=== PATIENT | female | born 1980 | race Caucasian/White ===

== ENCOUNTER 2020-11-10 10:00 | Outpatient (CLI) | payer MEDICAID, SELFPAY ==
[~2020-11-10] VITALS: Ht 162.6 cm; Wt 66.2 kg
[2020-11-10 09:59] LABS: BASOPHILS % (AUTO) 0.4 % (0.0-2.0); EOSINOPHILS # (AUTO) 0.1 K/uL (0.0-0.4); EOSINOPHILS % (AUTO) 1.2 % (0.0-4.0); HEMATOCRIT 38.6 % (36-48); LYMPHOCYTES # (AUTO) 1.1 K/uL (1.0-5.5); LYMPHOCYTES % (AUTO) 14.4 % (20.5-51.5); MEAN CORPUSCULAR HEMOGLOBIN 34 pg (27-31); MEAN CORPUSCULAR HGB CONC 34 % (32-36); MEAN CORPUSCULAR VOLUME 99 fL (79.0-98.0); MONOCYTES # (AUTO) 0.5 K/uL (0.0-1.0); MONOCYTES % (AUTO) 6.4 % (1.7-9.3); NEUTROPHILS # (AUTO) 5.8 K/uL (1.8-7.7); NEUTROPHILS % (AUTO) 77.6 % (40.0-70.0); PLATELET COUNT (AUTO) 220 K/uL (130-430); RED BLOOD CELL COUNT(AUTO) 3.89 MIL/uL (4.2-6.2); RED CELL DISTRIBUTION WIDTH 12.5 % (9.0-15.0); WHITE BLOOD COUNT (AUTO) 7.4 K/uL (4.8-10.8)
[2020-11-10 10:25] LABS: ALBUMIN 3.8 g/dL (3.4-4.8); CALCIUM 8.7 mg/dL (8.4-11.0); CREATININE 0.73 mg/dL (0.55-1.30); POTASSIUM 4.6 mmol/L (3.5-5.1); TOTAL BILIRUBIN 0.6 mg/dL (0.0-1.0)
== END 2020-11-10 11:00 | disposition home or self-care (01) ==
LOC: SLB 10:00 → EDSTATUS 11-12 08:00
PROVIDERS: ATTEND Obstetrics & Gynecology
DX: Z01.812 Encounter for preprocedural laboratory examination (principal); Z20.822 Contact with and (suspected) exposure to COVID-19
CPT/HCPCS: 36415; 80053; 85025; 86886; 86900; 86901

== ENCOUNTER 2021-05-05 09:47 | Day surgery (SDC) | payer MEDICAID, SELFPAY ==
[~2021-05-05] VITALS: Ht 162.6 cm; Wt 66.7 kg
[2021-05-05 10:32] LABS: HCG,QUAL RESULT NEGATIVE (NEGATIVE)
[2021-05-05] MEDS ORDERED: KETOROLAC TROMETHAMINE 30 MG VIAL IVP ONE (11:48)
[2021-05-05] MEDS ORDERED: ONDANSETRON HCL 4 MG/2 ML VIAL IVP ONE (11:48)
[2021-05-05] MEDS ORDERED: PROPOFOL 200MG/ 20ML VIAL (DIPRIVAN) IV ONE (11:48)
[2021-05-05] MEDS ORDERED: DESFLURANE 15 MIN GAS INH ONE (11:48)
[2021-05-05] MEDS ORDERED: NS 1000 ML IV.SOLN IV ONE (11:48)
[2021-05-05] MEDS ORDERED: fentaNYL CITRATE/PF 100 MCG/2 ML AMP IVP ONE (11:48)
[2021-05-05] MEDS ORDERED: LR 1,000 ML IV.SOLN IV ONE (11:48)
[2021-05-05] MEDS ORDERED: DEXAMETHASONE SOD PHOSPHATE 4 MG/ML VIAL IVP ONE (11:48)
[2021-05-05] MEDS ORDERED: METOCLOPRAMIDE HCL 10 MG/2 ML VIAL IVP PRN (12:30)
[2021-05-05 14:20] VITALS: BP_SYST 110
== END 2021-05-05 14:10 | disposition home or self-care (01) ==
LOC: SDS 09:47 → SMU 10:03 → SDS 14:10
PROVIDERS: ATTEND Obstetrics & Gynecology
DX: T83.32XA Displacement of intrauterine contraceptive device, initial encounter (principal); Y82.8 Other medical devices associated with adverse incidents; Z88.0 Allergy status to penicillin
CPT/HCPCS: 36415; 58562; 84703; 86886; 86900; 86901; 87426; 88300; 88305; J1100; J1885; J2405; J2704; J3010; J7030; J7120